=== PATIENT | female | born 1975 | race Caucasian/White ===

== ENCOUNTER → 2025-01-24 | Outpatient (CLI) | payer OTHER ==
[~2025-01-24] MED LIST: ANAS1TAB2 PO; CALC600T86 PO; MELO15TA28 PO; OMEP-173 PO; THERTAB52 PO; VENL37.598 PO
== END ==
LOC: M WHC 11:44
PROVIDERS: ATTEND Internal Medicine Medical Oncology
DX: Z85.3 Personal history of malignant neoplasm of breast (principal)

== ENCOUNTER → 2025-02-08 | Outpatient (CLI) | payer OTHER | LOC: M RAD 16:11 | PROVIDERS: ATTEND Internal Medicine Medical Oncology | DX: M79.642 Pain in left hand (principal); Z85.3 Personal history of malignant neoplasm of breast ==